=== PATIENT | female | born 1995 | race Caucasian/White ===

== ENCOUNTER 2021-06-04 14:34 | Emergency (ER) | payer SELFPAY ==
[~2021-06-04] VITALS: Ht 175.3 cm; Wt 96.5 kg
[2021-06-04 15:58] LABS: BASOPHILS % (AUTO) 1 % (0-1); EOSINOPHILS % (AUTO) 3 % (1-7); LYMPHOCYTES % (AUTO) 25 % (22-44); MEAN CORPUSCULAR HEMOGLOBIN 31.3 pg (27.0-34.8); MEAN CORPUSCULAR HGB CONC 34.1 g/dL (32.4-35.8); MEAN PLATELET VOLUME 7.6 fL (7.4-10.4); MONOCYTES % (AUTO) 6 % (2-9); NEUTROPHILS % (AUTO) 66 % (42-75); PLATELET COUNT 330 x10^3/uL (130-400); RED BLOOD COUNT 4.43 x10^6/uL (3.82-5.3); RED CELL DISTRIBUTION WIDTH 13.5 % (9.6-15.2)
[2021-06-04 16:07] LABS: ALBUMIN 3.3 g/dL (3.4-5.0); ANION GAP 3 mmol/L (5-15); CALCIUM 8.5 mg/dL (8.5-10.1); CHLORIDE 107 mmol/L (98-107)
[2021-06-04 16:40] LABS: ALANINE AMINOTRANSFERASE 25 U/L (12-78); ALKALINE PHOSPHATASE 50 U/L (45-117); BILIRUBIN,TOTAL 1.2 mg/dL (0.2-1.0); CREATININE 0.71 mg/dL (0.55-1.02); TOTAL PROTEIN 6.9 g/dL (6.4-8.2)
--- NOTE | 2021-06-04 17:05 | NUR ---
gate attendant note: Pt to room from lobby.
--- NOTE | 2021-06-04 17:15 | NUR ---
ASSUMED PT CARE. PT AMBULATORY TO BATHROOM TO PROVIDE CLEAN CATCH URINE. SAMPLE PROVIDED AND PT RTD TO ROOM W/O INCIDENT
--- NOTE | 2021-06-04 17:28 | NUR ---
URINE SENT TO LAB, VSS. PT C/O FOUL SMELLING VAG DISCHARGE. 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 CALL LIGHT W/I REACH
--- NOTE | 2021-06-04 17:38 | NUR ---
DR HALL AT BEDSIDE, PT ASSESSMENT POC DISCUSSED AND QUESTIONS ANSWERED.
[2021-06-04 17:56] LABS: MICROSCOPIC NOT IND
--- NOTE | 2021-06-04 18:30 | NUR ---
task RN: pt sitting up on gurney in no apparent distress. family at bedside
[2021-06-04 18:56] VITALS: BP 120/68
[2021-06-04 18:59] LABS: CLUE CELLS PRESENT (NONE SEEN); WET PREP WBCS MANY (FEW)
--- NOTE | 2021-06-04 19:33 | NUR ---
Patient/Caregiver given discharge instructions and they have confirmed that they understand the instructions. Patient ambulatory with steady gait. NAD, all questions answered appropriately, denies additional needs at this time. No personal belongings left in room after discharge.
== END 2021-06-04 19:34 | disposition home or self-care (01) ==
LOC: ED 18:40
DX: O20.0 Threatened abortion (principal); F17.200 Nicotine dependence, unspecified, uncomplicated; Z3A.01 Less than 8 weeks gestation of pregnancy
CPT/HCPCS: 36415; 76770; 76801; 80053; 81003; 84702; 85025; 86901; 87210; 87491; 87591; 87808; 99285